=== PATIENT | male | born 1970 | race African-American/Black ===

== ENCOUNTER 2023-12-16 12:10 | Emergency (ER) | payer OTHER ==
[2023-12-16] MEDS ORDERED: diphenhydrAMINE 25 MG CAP ONE (12:21)
[2023-12-16] MEDS ORDERED: Loratadine 10 MG TAB ONE (12:21)
== END 2023-12-16 15:23 ==
LOC: NAV ERS 12:10
DX: T78.1XXA Other adverse food reactions, not elsewhere classified, initial encounter (principal); I10 Essential (primary) hypertension
CPT/HCPCS: 99283